=== PATIENT | male | born 1950 | race Caucasian/White ===

== ENCOUNTER 2018-02-19 12:26 | Day surgery (SDC) | payer OTHER ==
[~2018-02-19] VITALS: Ht 182.9 cm; Wt 83.7 kg
[~2018-02-19 12:26] MED LIST: ACET120S
[2018-02-19] MEDS ORDERED: NEBI10 (13:10)
[2018-02-19] MEDS ORDERED: GLUC500 (13:11)
[2018-02-19] MEDS ORDERED: Milk Thistle150 MG (13:12)
[2018-02-19] MEDS ORDERED: Vitamin D2000 UNIT (13:12)
== END 2018-02-19 14:48 | disposition home or self-care (01) ==
LOC: ORSCSDS 12:26
DX: Z12.11 Encounter for screening for malignant neoplasm of colon (principal); D12.4 Benign neoplasm of descending colon; D12.3 Benign neoplasm of transverse colon; K62.1 Rectal polyp; K63.89 Other specified diseases of intestine; K64.4 Residual hemorrhoidal skin tags; K57.30 Diverticulosis of large intestine without perforation or abscess without bleeding; K64.8 Other hemorrhoids; Z86.19 Personal history of other infectious and parasitic diseases; Z87.891 Personal history of nicotine dependence; Z79.899 Other long term (current) drug therapy
CPT/HCPCS: 88305; J7120

== ENCOUNTER 2023-01-17 08:21 | Day surgery (SDC) | payer OTHER ==
[~2023-01-17] VITALS: Ht 182.9 cm; Wt 84.3 kg
[~2023-01-17 08:21] MED LIST changes: +GLUC500; +Milk Thistle150 MG; +NEBI10; +Vitamin D2000 UNIT
[2023-01-17] MEDS ORDERED: METO25ER (08:50)
[2023-01-17 10:48] VITALS: BP 128/78
== END 2023-01-17 10:47 | disposition home or self-care (01) ==
LOC: ORSCSDS 08:21
PROVIDERS: Specialist
PROC: 0DBL8ZX Excision of Transverse Colon, Via Natural or Artificial Opening Endoscopic, Diagnostic (ICD-10-PCS; principal; 2023-01-17 09:45)
DX: Z12.11 Encounter for screening for malignant neoplasm of colon (principal); Z86.010 Personal history of colon polyps; Z80.0 Family history of malignant neoplasm of digestive organs; D12.3 Benign neoplasm of transverse colon; K57.30 Diverticulosis of large intestine without perforation or abscess without bleeding; K64.8 Other hemorrhoids; K64.4 Residual hemorrhoidal skin tags
CPT/HCPCS: 88305; J2704; J7120